=== PATIENT | female | born 1965 | race Caucasian/White ===

== ENCOUNTER 2023-08-08 12:49 | Observation (INO) | payer OTHER ==
[~2023-08-08] VITALS: Ht 167.6 cm; Wt 103.4 kg
[2023-08-08] MEDS ORDERED: SODIUM CHLORIDE FLUSH 10 ML SYR IV PRN (13:15)
[2023-08-08] MEDS: ASPIRIN 81 MG CHEW TAB PO ONE ×2 (13:31→17:14)
[2023-08-08 13:52] LABS: BASOPHILS % 0.2 % (0.0-1.0); EOSINOPHILS # (AUTO) 0.1 (0.0-0.4); EOSINOPHILS % 2.9 % (0.0-6.0); HEMATOCRIT 35.6 % (34.2-44.1); HEMOGLOBIN 11.6 g/dL (12.0-16.0); LYMPHOCYTES # (AUTO) 1.8 (1.0-3.2); MEAN CORPUSCULAR HEMOGLOBIN 30.2 pg (28-32); MEAN CORPUSCULAR HGB CONC 32.6 g/dL (31-35); MEAN CORPUSCULAR VOLUME 92.7 fL (81-99); MONOCYTES # (AUTO) 0.3 (0.2-0.8); MONOCYTES % 6.3 % (4.4-11.3); NEUTROPHILS # (AUTO) 2.2 (2.1-6.9); NEUTROPHILS % 49.4 % (38.7-80.0); PLATELET COUNT 251 x10e3/uL (140-360); RED BLOOD COUNT 3.84 x10e6/uL (3.6-5.1); RED CELL DISTRIBUTION WIDTH 12.6 % (11.7-14.4); WHITE BLOOD COUNT 4.41 x10e3/uL (4.8-10.8)
[2023-08-08 14:07] LABS: ALANINE AMINOTRANSFERASE 28 IU/L (0-55); ALKALINE PHOSPHATASE 83 IU/L (40-150); ANION GAP 13.8 mmol/L (8-16); BLOOD UREA NITROGEN 13 mg/dL (7-26); BUN/CREATININE RATIO 18 (6-25); CALCIUM 9.1 mg/dL (8.4-10.2); CARBON DIOXIDE 23 mmol/L (22-29); CHLORIDE 102 mmol/L (98-107); CREATININE, SERUM 0.73 mg/dL (0.57-1.11); EST GLOMERULAR FILTRATION RATE 96 ML/MIN (>=60); GLUCOSE 101 mg/dL (74-118); POTASSIUM 3.8 mmol/L (3.5-5.1); SODIUM 135 mmol/L (136-145)
[2023-08-08 14:33] LABS: BILIRUBIN,TOTAL 0.4 mg/dL (0.2-1.2)
[2023-08-08 14:45] LABS: TROPONIN I < 0.001 ng/mL (0-0.300)
[2023-08-08] MEDS ORDERED: SODIUM CHLORIDE FLUSH 10 ML SYR INJ PRN (15:45)
[2023-08-08 17:09] VITALS: BP 128/92; PULSE 66; RESP 19; TEMP 98.2; O2SAT 100
[2023-08-08 18:07] VITALS: BP 128/92; PULSE 66; RESP 19; TEMP 98.2; O2SAT 100
[2023-08-08 18:17] VITALS: BP 128/92; PULSE 66; RESP 19; TEMP 98.2; O2SAT 100
[2023-08-08] MEDS: ONDANSETRON HCL INJ 2MG/ML 2ML 2 MG/ML VIAL IV PRN (18:40)
[2023-08-08 20:00] VITALS: BP 143/83; PULSE 91; RESP 20; TEMP 97.9; O2SAT 97
[2023-08-08 21:00] VITALS: BP 143/83; PULSE 91; RESP 20; TEMP 97.9; O2SAT 97
[2023-08-08] MEDS ORDERED: ATROVENT HFA12.9 GM INH (21:48)
[2023-08-08] MEDS ORDERED: BUTALB-ACETAMI1 EAC2 PO (21:48)
[2023-08-08] MEDS ORDERED: SYNTHROID125 MCG PO (21:48)
[2023-08-08] MEDS ORDERED: WOMEN'S 50 PLU1 EACH PO (21:48)
[2023-08-08] MEDS ORDERED: VITAMIN D3125 MCG PO (21:48)
[2023-08-08] MEDS ORDERED: EPIPEN JR0.15 MG/01 IM (21:48)
[2023-08-08] MEDS ORDERED: FOSAMAX70 MG PO (21:48)
[2023-08-08] MEDS ORDERED: VALACYCLOVIR500 MG PO (21:48)
[2023-08-08] MEDS ORDERED: CYCLOBENZAPRINE10 MG PO (21:48)
[2023-08-08] MEDS ORDERED: NEURONTIN300 MG PO (21:48)
[2023-08-08] MEDS ORDERED: LUNESTA3 MG PO (21:48)
[2023-08-08] MEDS ORDERED: OXCARBAZEPINE600 MG PO (21:48)
[2023-08-08] MEDS ORDERED: MECLIZINE HCL12.5 MG PO (21:48)
[2023-08-08] MEDS ORDERED: CALCIUM CARBON500 MG PO (21:48)
[2023-08-08] MEDS ORDERED: LEVOTHYROXINE112 MCG PO (21:48)
[2023-08-08] MEDS ORDERED: TRAZODONE HCL100 MG PO (21:48)
[2023-08-08] MEDS ORDERED: DOXYCYCLINE HY100 M4 PO (21:48)
[2023-08-08] MEDS ORDERED: ESTRADIOL1 EAC3 TOP (21:48)
[2023-08-08] MEDS ORDERED: LOSARTAN POTASS25 MG PO (21:48)
[2023-08-08] MEDS ORDERED: CYCLOBENZAPRINE HCL 10 MG TAB PO PRN (22:15)
[2023-08-08] MEDS ORDERED: GABAPENTIN 300 MG CAP PO PRN (22:15)
[2023-08-08] MEDS ORDERED: MECLIZINE HCL 12.5 MG TAB PO PRN (22:15)
[2023-08-08] MEDS ORDERED: ACETAMINOPHEN 325 MG TAB PO PRN (22:15)
[2023-08-08] MEDS ORDERED: KETOROLAC TROMETHAMINE 30 MG/ML VIAL IV PRN (22:15)
[2023-08-08] MEDS: TRAZODONE HCL 50 MG TAB PO SCH (22:30)
[2023-08-08] MEDS: Morphine 4mg INJECTION 4 MG/ML INJ IV PRN (22:31)
[2023-08-09] VITALS: BP 121/69; PULSE 70; RESP 20; TEMP 97.6; O2SAT 100
[2023-08-09 00:51] LABS: TROPONIN I 0.003 ng/mL (0-0.300)
[2023-08-09 04:00] VITALS: BP 108/72; PULSE 60; RESP 20; TEMP 97.6; O2SAT 100
[2023-08-09 05:40] LABS: BASOPHILS % 0.2 % (0.0-1.0); EOSINOPHILS # (AUTO) 0.2 (0.0-0.4); EOSINOPHILS % 3.4 % (0.0-6.0); HEMATOCRIT 33.6 % (34.2-44.1); HEMOGLOBIN 10.7 g/dL (12.0-16.0); LYMPHOCYTES # (AUTO) 1.9 (1.0-3.2); LYMPHOCYTES % 37.6 % (18.0-39.1); MEAN CORPUSCULAR HEMOGLOBIN 29.9 pg (28-32); MEAN CORPUSCULAR HGB CONC 31.8 g/dL (31-35); MEAN CORPUSCULAR VOLUME 93.9 fL (81-99); MONOCYTES # (AUTO) 0.4 (0.2-0.8); MONOCYTES % 7.2 % (4.4-11.3); NEUTROPHILS # (AUTO) 2.6 (2.1-6.9); NEUTROPHILS % 51.4 % (38.7-80.0); PLATELET COUNT 212 x10e3/uL (140-360); RED BLOOD COUNT 3.58 x10e6/uL (3.6-5.1); RED CELL DISTRIBUTION WIDTH 12.4 % (11.7-14.4); WHITE BLOOD COUNT 5.03 x10e3/uL (4.8-10.8)
[2023-08-09] MEDS: LEVOTHYROXINE SODIUM 100 MCG TAB PO SCH (06:07)
[2023-08-09] MEDS: LEVOTHYROXINE SODIUM 75 MCG TAB PO SCH (06:07)
[2023-08-09 06:11] LABS: ALBUMIN 3.4 g/dL (3.5-5.0); ALBUMIN/GLOBULIN RATIO 1.1 (0.8-2.0); ANION GAP 11.8 mmol/L (8-16); BILIRUBIN,TOTAL 0.3 mg/dL (0.2-1.2); CALCIUM 8.2 mg/dL (8.4-10.2); CREATININE, SERUM 0.73 mg/dL (0.57-1.11); POTASSIUM 3.8 mmol/L (3.5-5.1); TOTAL PROTEIN 6.6 g/dL (6.5-8.1)
[2023-08-09] MEDS ORDERED: LEVOTHYROXINE SODIUM 125 MCG TAB PO SCH (06:30)
[2023-08-09 08:06] VITALS: BP 120/81; PULSE 57; RESP 16; TEMP 97.6; O2SAT 100
[2023-08-09] MEDS ORDERED: IPRATROPIUM BROMIDE 17 MCG ACTUATION INHALER INH SCH (09:00)
[2023-08-09] MEDS ORDERED: GABAPENTIN 300 MG CAP PO SCH (09:00)
[2023-08-09] MEDS: LOSARTAN POTASSIUM 25 MG TAB PO SCH (09:22)
[2023-08-09] MEDS: OYST-CAL-D 500MG TABLET PO SCH (09:23)
[2023-08-09] MEDS: OXCARBAZEPINE 300 MG TAB PO SCH (09:23)
[2023-08-09] MEDS: FERROUS SULFATE 325 MG TAB PO SCH (09:23)
[2023-08-09 09:31] VITALS: BP 120/81; PULSE 57; RESP 16; TEMP 97.6; O2SAT 100
[2023-08-09 10:32] LABS: CREATINE KINASE 92 IU/L (29-168)
[2023-08-09 11:02] LABS: TROPONIN I < 0.001 ng/mL (0-0.300)
[2023-08-09] MEDS: FAMOTIDINE 20 MG TAB PO SCH (12:01)
[2023-08-09] MEDS: NAPROXEN 250 MG TAB PO SCH (12:01)
[2023-08-09 12:30] VITALS: BP 123/81; PULSE 61; RESP 18; TEMP 97.6; O2SAT 100
[2023-08-09] MEDS ORDERED: NAPROXEN250 MG PO (16:03)
[2023-08-09] MEDS ORDERED: LIPITOR20 MG PO (16:03)
[2023-08-09] MEDS ORDERED: PEPCID20 MG PO (16:14)
[2023-08-09 16:42] VITALS: BP 135/87; PULSE 72; RESP 18; TEMP 98; O2SAT 100
[2023-08-09] MEDS ORDERED: ATORVASTATIN 10 MG TAB PO SCH (21:00)
[2023-08-10] MEDS ORDERED: IPRATROPIUM BROMIDE 0.02% 2.5 ML NEB NEB SCH (06:00)
== END 2023-08-09 17:50 | disposition home or self-care (01) ==
LOC: ER 12:56 → ERHOLD 15:34 → MED/SURG 16:59
PROVIDERS: ADMIT Internal Medicine; ATTEND Internal Medicine
DX: R07.89 Other chest pain (principal); I10 Essential (primary) hypertension; D50.9 Iron deficiency anemia, unspecified; R73.03 Prediabetes; E06.3 Autoimmune thyroiditis; Z98.84 Bariatric surgery status; E78.5 Hyperlipidemia, unspecified; G47.00 Insomnia, unspecified; M79.7 Fibromyalgia
CPT/HCPCS: 36415 ×2; 71046; 80053 ×2; 82550; 83880; 84443; 84484 ×2; 85025 ×2; 85379; 93005; 93306; 94760; 99284; G0378 ×2; J2270; J2405; U0002